=== PATIENT | female | born 1995 | race African-American/Black ===

== ENCOUNTER 2018-03-20 13:20 | Emergency (ER) | payer MEDICAID, OTHER ==
[~2018-03-20] VITALS: Ht 162.6 cm; Wt 56.0 kg
[2018-03-20 13:22] VITALS: BP 117/79
[2018-03-20] MEDS ORDERED: HYDROCODONE/ACETAMINOPHEN 5/325MG TABLET PO ONE (14:00)
== END 2018-03-20 14:43 | disposition left against medical advice (07) ==
LOC: ER 13:20
DX: Z53.21 Procedure and treatment not carried out due to patient leaving prior to being seen by health care provider (principal); S00.83XA Contusion of other part of head, initial encounter; Y08.89XA Assault by other specified means, initial encounter; Y93.89 Activity, other specified; Y92.89 Other specified places as the place of occurrence of the external cause

== ENCOUNTER 2021-07-26 23:41 | Emergency (ER) | payer OTHER ==
[~2021-07-26] VITALS: Ht 154.9 cm; Wt 66.0 kg
[2021-07-26 23:42] VITALS: BP 110/80
== END 2021-07-27 00:05 | disposition left against medical advice (07) ==
LOC: ER 23:41
DX: Z53.21 Procedure and treatment not carried out due to patient leaving prior to being seen by health care provider (principal)